=== PATIENT | male | born 1980 | race Caucasian/White ===

== ENCOUNTER → 2016-07-01 | Outpatient (CLI) | payer BC ==
[2016-07-01 12:48] LABS: Follicle Stimulating Hormone 8.3 mIU/mL (1.6-9.7); Prolactin 19.4 ng/mL (3.7-17.9)
[2016-07-01 12:56] LABS: ALT 49 U/L (21-72); AST 33 U/L (17-59); Alkaline Phosphatase 68 U/L (38-126); Anion Gap 14 mmol/L; Blood Urea Nitrogen 17 mg/dL (9-20); Calcium 9.5 mg/dL (8.4-10.2); Carbon Dioxide 24 mmol/L (22-30); Chloride 104 mmol/L (98-107); Glucose 96 mg/dL (74-99); Non-African American GFR(MDRD) >60 (>60 ml/min/1.73 sqM); Potassium 4.2 mmol/L (3.5-5.1); Sodium 142 mmol/L (137-145); Total Bilirubin 0.6 mg/dL (0.2-1.3); Total Protein 7.7 g/dL (6.3-8.2)
[2016-07-01 13:19] LABS: Vitamin B12 849 pg/mL (239-931)
== END | disposition home or self-care (01) ==
LOC: LABWHC1 09:27
PROVIDERS: ATTEND Internal Medicine Endocrinology, Diabetes & Metabolism
DX: E29.1 Testicular hypofunction (principal); E89.0 Postprocedural hypothyroidism; R53.83 Other fatigue
CPT/HCPCS: 36415; 80053; 82533; 82607; 83001; 83002; 84146; 84403; 84443

== ENCOUNTER → 2016-07-08 | Outpatient (CLI) | payer BC ==
[2016-07-08 11:07] LABS: Follicle Stimulating Hormone 9.2 mIU/mL (1.6-9.7)
== END | disposition home or self-care (01) ==
LOC: LABWHC1 08:42
PROVIDERS: ATTEND Internal Medicine Endocrinology, Diabetes & Metabolism
DX: E89.0 Postprocedural hypothyroidism (principal); E29.1 Testicular hypofunction; R53.83 Other fatigue
CPT/HCPCS: 36415; 82024; 82533; 83001; 83002; 84403; 84439; 84443

== ENCOUNTER → 2016-07-12 | Outpatient (CLI) | payer BC ==
[~2016-07-12] MED LIST: COSYNTROPIN 0.25 MG VIAL IVP ONE; SODIUM CHLORIDE 0.9% 250 ML in EMPTY BAG 1 BAG IV PRN; SODIUM CHLORIDE 0.9% 500 ML in EMPTY BAG 1 BAG IV PRN
[2016-07-12 10:49] VITALS: BP 145/94; PULSE 80; RESP 20; TEMP 97.7
== END | disposition home or self-care (01) ==
LOC: PROCWHC3 10:11
PROVIDERS: ATTEND Internal Medicine Endocrinology, Diabetes & Metabolism
DX: R53.83 Other fatigue (principal)
CPT/HCPCS: 82533; 82024; 96374; J0834

== ENCOUNTER → 2016-07-19 | Outpatient (CLI) | payer BC ==
--- NOTE | 2016-07-20 07:18 | MR ---
EXAMINATION TYPE: MR pituitary wo/w con DATE OF EXAM: 07/20/2016 6:36 AM COMPARISON: NONE HISTORY: Fatigue, postablative hypothyroidism CONTRAST: Standard multiplanar, multisequence MRI of the pituitary gland with and without the intravenous admin istration of 20 mL intravenous MultiHance gadolinium contrast was obtained on a 3 Sabrina magnet.. FINDINGS: There is a focal 1.5 mm area of decreased enhancement in the right side of the pituitary gl and pituitary morphology is otherwise unremarkable. The remainder of the gland enhances homogeneously IMPRESSION: 1.5 mm microadenoma involving the right side of the pituitary gland.
== END | disposition home or self-care (01) ==
LOC: RADMRIMAIN 21:07
PROVIDERS: ATTEND Internal Medicine Endocrinology, Diabetes & Metabolism
DX: D35.2 Benign neoplasm of pituitary gland (principal)
CPT/HCPCS: 70553; A9577

== ENCOUNTER → 2016-10-26 | Outpatient (CLI) | payer BC ==
[2016-10-26 09:26] LABS: CH 31.7; CHCM 34.2; HCT 45.6 % (39.0-53.0); HDW 2.52; HGB 15.4 gm/dL (13.0-17.5); MCH 31.5 pg (25.0-35.0); MCHC 33.8 g/dL (31.0-37.0); MCV 93.2 fL (80.0-100.0); Mean Platelet Volume 6.9; RBC 4.89 m/uL (4.30-5.90); WBC 5.5 k/uL (3.8-10.6)
[2016-10-26 10:59] LABS: ALT 52 U/L (21-72); AST 30 U/L (17-59); Alkaline Phosphatase 66 U/L (38-126); Anion Gap 10 mmol/L; Blood Urea Nitrogen 16 mg/dL (9-20); Calcium 9.8 mg/dL (8.4-10.2); Carbon Dioxide 29 mmol/L (22-30); Chloride 106 mmol/L (98-107); Glucose 121 mg/dL (74-99); Non-African American GFR(MDRD) >60 (>60 ml/min/1.73 sqM); Potassium 4.3 mmol/L (3.5-5.1); Sodium 145 mmol/L (137-145); Total Bilirubin 0.4 mg/dL (0.2-1.3); Total Protein 7.2 g/dL (6.3-8.2)
== END | disposition home or self-care (01) ==
LOC: LABWHC1 08:30
PROVIDERS: ATTEND Internal Medicine Endocrinology, Diabetes & Metabolism
DX: E23.0 Hypopituitarism (principal); E27.49 Other adrenocortical insufficiency; E89.0 Postprocedural hypothyroidism
CPT/HCPCS: 36415; 80053; 84153; 84403; 84439; 84443; 85027

== ENCOUNTER → 2017-01-28 | Outpatient (CLI) | payer BC ==
[2017-01-28 08:53] LABS: CH 32.6; CHCM 35.3; HCT 49.1 % (39.0-53.0); HDW 2.56; HGB 16.8 gm/dL (13.0-17.5); MCH 31.7 pg (25.0-35.0); MCHC 34.1 g/dL (31.0-37.0); MCV 92.8 fL (80.0-100.0); Mean Platelet Volume 7.3; RBC 5.29 m/uL (4.30-5.90)
[2017-01-28 10:08] LABS: ALT 48 U/L (21-72); AST 25 U/L (17-59); Alkaline Phosphatase 61 U/L (38-126); Anion Gap 8 mmol/L; Blood Urea Nitrogen 17 mg/dL (9-20); Calcium 9.3 mg/dL (8.4-10.2); Carbon Dioxide 26 mmol/L (22-30); Chloride 105 mmol/L (98-107); Glucose 104 mg/dL (74-99); Non-African American GFR(MDRD) >60 (>60 ml/min/1.73 sqM); Potassium 4.4 mmol/L (3.5-5.1); Sodium 139 mmol/L (137-145); Total Bilirubin 0.7 mg/dL (0.2-1.3); Total Protein 7.4 g/dL (6.3-8.2)
== END | disposition home or self-care (01) ==
LOC: LABWHC1 08:14
PROVIDERS: ATTEND Internal Medicine Endocrinology, Diabetes & Metabolism
DX: E23.0 Hypopituitarism (principal); E27.49 Other adrenocortical insufficiency; D35.2 Benign neoplasm of pituitary gland; E89.0 Postprocedural hypothyroidism
CPT/HCPCS: 36415; 80053; 84146; 84403; 84439; 84443; 85027

== ENCOUNTER → 2017-02-15 | Outpatient (CLI) | payer BC ==
--- NOTE | 2017-02-15 21:33 | CONS ---
CONSULTATION Consultation done for sleep apnea. 36-year-old male patient advised to come into the sleep center by his as she has noted that the patient is having loud snoring quits breathing multiple occasions throughout the night. The patient's sleep quality has been poor for many years as the patient wakes up frequently during the night. He wakes up to urinate/ At times he wakes up with dry mouth and in the morning he is nonrefreshed. His current [place] score is 19. He has been gradually gaining weight over the years. No alcoholism. No substance abuse. His father apparently has obstructive sleep apnea. He has been diagnosed having hypothyroidism, maintained on thyroid hormone replacement. He is also known to have hypotestosteronism and pituitary adenoma that had resulted into an adrenal insufficiency for which he is on hydrocortisone. PAST MEDICAL HISTORY: 1. Obesity. 2. Hypothyroidism. 3. Graves disease status post radioactive iodine treatment. 4. Pituitary adenoma with secondary adrenal insufficiency. PAST SURGICAL HISTORY: Includes removal of a cyst from the right wrist and left knee arthroscopy with subsequent revision. DRUG ALLERGIES: OUTPATIENT MEDICATION LIST: Testosterone shots, hydrocortisone 10 mg, 1 tab in the morning and 1 tab in the evening and levothyroxine 150 mcg p.o. daily. SOCIAL HISTORY: Patient is nonsmoker. He quit smoking few years back. He drinks 1-2 beers on a weekly basis. No history of substance abuse. He works for company. FAMILY HISTORY: Positive for GHASSAN in his father. REVIEW OF SYSTEMS: 12-point review of system was done and positive findings were mentioned above in the history of present illness. No lower extremities. No headaches. No change in mental status. No heartburn. No palpitations. No grinding of the teeth. BP is 148/84, pulse 92, respirations 16, temp 97.8, saturation 96% on room air. BMI 32.9 and weight is 246, height is 6'0". Neck size is 17.5 inches. GENERAL: Appears calm, comfortable. HEENT: Short neck, crowded posterior pharynx. There is no goiter or neck masses. LUNGS: Diminished breath sounds bilaterally. Otherwise clear. HEART: Sounds regular rate and rhythm. Normal S1, S2. No S3, S4. No murmurs. ABDOMEN: Soft, nontender. No organomegaly. EXTREMITIES: No edema, cyanosis or clubbing. IMPRESSION: 1. Obstructive sleep apnea clinically suspected and the patient will need further investigation. 2. Chronic hypersomnia with an [place] score of 18. 3. Obesity with a BMI of 32.9. 4. Hypothyroidism. 5. History of Graves disease, with previous radioactive iodine treatment. 6. Pituitary adenoma with secondary adrenal insufficiency. PLAN: 1. Encourage weight loss. 2. Avoid driving especially when feeling drowsy or sleepy. 3. Implement good sleep hygiene measures. 4. Proceed with a screening polysomnogram looking for any significant sleep apnea and treat accordingly. MMODL / IJN: [id number] /
== END ==
LOC: SLEEP 14:02
PROVIDERS: ATTEND Internal Medicine Critical Care Medicine
DX: G47.33 Obstructive sleep apnea (adult) (pediatric) (principal); G47.10 Hypersomnia, unspecified; E66.9 Obesity, unspecified; E03.9 Hypothyroidism, unspecified; D35.2 Benign neoplasm of pituitary gland; Z68.32 Body mass index [BMI] 32.0-32.9, adult; Z79.899 Other long term (current) drug therapy
CPT/HCPCS: 99211

== ENCOUNTER 2017-05-03 08:33 | Emergency (ER) | payer BC ==
[2017-05-03 08:38] VITALS: BP 138/80; PULSE 77; RESP 18; TEMP 97.8
--- NOTE | 2017-05-03 08:57 | ED ---
General Adult HPI - General Chief complaint: Back Pain/Injury Stated complaint: Rib Pain Time Seen by Provider: 05/03/17 08:46 Source: patient, RN notes reviewed Mode of arrival: ambulatory Limitations: no limitations - History of Present Illness Initial comments: 36-year-old male presents emergency Department chief complaint left rib pain. Patient states 9-10 days ago he states he went to push off the couch to get up and states that it moved causing to fall and his left ribs on the frame. Patient states that he's been trying to tell felt the pain but states it's been getting worse. He noticed that her 20 takes a deep inspiration. He does not feel short of breath at rest. He states he also uses a CPAP at nighttime which seems to make it more sore. Patient denies palpitations, anterior chest pain, cardiac history, abdominal pain, nausea vomiting diarrhea constipation. - Related Data Home Medications Medication Instructions Recorded Confirmed Hydrocortisone [Cortef] 10 mg PO HS 05/03/17 05/03/17 Hydrocortisone [Cortef] 15 mg PO QAM 05/03/17 05/03/17 L.acidoph,Paracasei, B.lactis 1 cap PO DAILY 05/03/17 05/03/17 [Probiotic] Multivitamin [Men's Multi-Vitamin] 1 tab PO DAILY 05/03/17 05/03/17 [place]-3 Fatty Acids/Fish Oil [Fish 1 cap PO DAILY 05/03/17 05/03/17 Oil 1,000 mg Softgel] Testosterone Injection (Unknown 1 injection SQ Q14D 05/03/17 05/03/17 Dose) Previous Rx's Medication Instructions Recorded Hydrocodone/Acetaminophen [[place] 1 tab PO Q6HR PRN #20 tab 05/03/17 5-325] Allergies Allergy/AdvReac Type Severity Reaction Status Date / Time Tetracyclines Allergy Unknown Verified 05/03/17 09:05 Review of Systems ROS Statement: Those systems with pertinent positive or pertinent negative responses have been documented in the HPI. ROS Other: All systems not noted in ROS Statement are negative. Past Medical History Past Medical History: Thyroid Disorder Additional Past Medical History / Comment(s): graves disease, sleep apnea, History of Any Multi-Drug Resistant Organisms: None Reported Past Surgical History: Orthopedic Surgery Additional Past Surgical History / Comment(s): left knee scope, ganglion cyst removal Past Anesthesia/Blood Transfusion Reactions: No Reported Reaction Past Psychological History: Depression Smoking Status: Former smoker Past Alcohol Use History: None Reported Past Drug Use History: None Reported - Past Family History Father Family Medical History: Coronary Artery Disease (CAD), Hypertension General Exam Limitations: no limitations General appearance: alert, in no apparent distress Head exam: Present: atraumatic, normocephalic, normal inspection Neck exam: Present: normal inspection, full ROM. Absent: tenderness, meningismus, lymphadenopathy Respiratory exam: Present: normal lung sounds bilaterally, chest wall tenderness (Moderate left anterior lateral rib tenderness just inferior to the pec). Absent: respiratory distress, wheezes, rales, rhonchi, stridor Cardiovascular Exam: Present: regular rate, normal rhythm, normal heart sounds. Absent: systolic murmur, diastolic murmur, rubs, gallop, clicks GI/Abdominal exam: Present: soft, normal bowel sounds. Absent: distended, tenderness, guarding, rebound, rigid Neurological exam: Present: alert, oriented X3, CN II-XII intact Skin exam: Present: warm, dry, intact, normal color. Absent: rash Course Vital Signs 05/03/17 08:34 Temperature 97.8 F Pulse Rate 77 Respiratory 18 Rate Blood Pressure 138/80 O2 Sat by Pulse 99 Oximetry Medical Decision Making - Medical Decision Making 36-year-old male present emergency department for left rib injuries. Patient has a fracture of the left anterior sixth rib. Patient has no evidence pneumothorax. Patient be given pain control follow-up with PCP discussed incentive spirometry and return parameters Disposition Clinical Impression: Left rib fracture Disposition: HOME SELF-CARE Condition: Stable Instructions: Rib Fracture (ED) Additional Instructions: Please return to the Emergency Department if symptoms worsen or any other concerns. Prescriptions: Hydrocodone/Acetaminophen [[place] 5-325] 1 tab PO Q6HR PRN #20 tab PRN Reason: Pain Referrals: None,Stated [Primary Care Provider] - 1-2 days Time of Disposition: 09:39
--- NOTE | 2017-05-03 09:18 | XR ---
EXAMINATION TYPE: XR ribs LT w pa chest xray DATE OF EXAM: 05/03/2017 COMPARISON: NONE HISTORY: Pain TECHNIQUE: Single view of the chest left views of the ribs are submitted. FINDINGS: The lungs are clear. No Evidence for pneumothorax. No evidence for focal contusion. Medi astinal structures are midline. Evaluation of the ribs transverse fracture of left ribs 6. No additi onal rib fractures seen. IMPRESSION: 1. Fracture of anterior left rib 6. 2. No evidence of pneumothorax or pulmonary contusion.
== END 2017-05-03 09:55 | disposition home or self-care (01) ==
LOC: EC 08:33
DX: S22.32XA Fracture of one rib, left side, initial encounter for closed fracture (principal); Z87.891 Personal history of nicotine dependence; Z88.1 Allergy status to other antibiotic agents; Z79.899 Other long term (current) drug therapy; W19.XXXA Unspecified fall, initial encounter; Y93.89 Activity, other specified
CPT/HCPCS: 99283

== ENCOUNTER → 2017-05-26 | Outpatient (CLI) | payer BC ==
[2017-05-26 09:06] LABS: CH 31.6; CHCM 34.6; HCT 45.1 % (39.0-53.0); HDW 2.68; HGB 15.1 gm/dL (13.0-17.5); MCH 30.7 pg (25.0-35.0); MCHC 33.5 g/dL (31.0-37.0); MCV 91.7 fL (80.0-100.0); Mean Platelet Volume 6.7; RBC 4.92 m/uL (4.30-5.90); RDW 12.7 % (11.5-15.5); WBC 4.8 k/uL (3.8-10.6)
[2017-05-26 09:18] LABS: ALT 45 U/L (21-72); AST 24 U/L (17-59); Alkaline Phosphatase 60 U/L (38-126); Anion Gap 10 mmol/L; Blood Urea Nitrogen 20 mg/dL (9-20); Calcium 9.5 mg/dL (8.4-10.2); Carbon Dioxide 27 mmol/L (22-30); Chloride 106 mmol/L (98-107); Glucose 101 mg/dL (74-99); Non-African American GFR(MDRD) >60 (>60 ml/min/1.73 sqM); Sodium 143 mmol/L (137-145); Total Bilirubin 0.4 mg/dL (0.2-1.3); Total Protein 7.4 g/dL (6.3-8.2)
== END | disposition home or self-care (01) ==
LOC: LABWHC1 08:38
PROVIDERS: ATTEND Internal Medicine Endocrinology, Diabetes & Metabolism
DX: E23.0 Hypopituitarism (principal); E27.49 Other adrenocortical insufficiency; D35.2 Benign neoplasm of pituitary gland; E89.0 Postprocedural hypothyroidism; R73.09 Other abnormal glucose
CPT/HCPCS: 36415; 80053; 83036; 84146; 84403; 84439; 84443; 85027

== ENCOUNTER 2017-06-05 17:09 | Emergency (ER) | payer BC ==
[2017-06-05 17:22] VITALS: RESP 20
--- NOTE | 2017-06-05 17:29 | ED ---
General Adult HPI - General Chief complaint: Extremity Injury, Upper Stated complaint: Broken toe Time Seen by Provider: 06/05/17 17:25 Source: patient, RN notes reviewed Mode of arrival: ambulatory Limitations: no limitations - History of Present Illness Initial comments: Patient's 36-year-old male who presents emergency room today with a chief complaint of injury to the left pinky toe. Patient states that he was walking and hit the edge of the couch with his foot causing injury to the left foot. He states that the toe seems to be off center. Patient denies any recent fever, chills, shortness of breath, chest pain, back pain, abdominal pain, nausea or vomiting, or any other complaints. - Related Data Home Medications Medication Instructions Recorded Confirmed Hydrocortisone [Cortef] 10 mg PO HS 05/03/17 05/03/17 Hydrocortisone [Cortef] 15 mg PO QAM 05/03/17 05/03/17 L.acidoph,Paracasei, B.lactis 1 cap PO DAILY 05/03/17 05/03/17 [Probiotic] Multivitamin [Men's Multi-Vitamin] 1 tab PO DAILY 05/03/17 05/03/17 [place]-3 Fatty Acids/Fish Oil [Fish 1 cap PO DAILY 05/03/17 05/03/17 Oil 1,000 mg Softgel] Testosterone Injection (Unknown 1 injection SQ Q14D 05/03/17 05/03/17 Dose) Previous Rx's Medication Instructions Recorded Hydrocodone/Acetaminophen [[place] 1 tab PO Q6HR PRN #20 tab 05/03/17 5-325] Ibuprofen [Motrin] 600 mg PO Q6HR PRN #40 day 06/05/17 Allergies Allergy/AdvReac Type Severity Reaction Status Date / Time Tetracyclines Allergy Unknown Verified 06/05/17 17:21 Review of Systems ROS Statement: Those systems with pertinent positive or pertinent negative responses have been documented in the HPI. ROS Other: All systems not noted in ROS Statement are negative. Past Medical History Past Medical History: Thyroid Disorder Additional Past Medical History / Comment(s): graves disease, sleep apnea, History of Any Multi-Drug Resistant Organisms: None Reported Past Surgical History: Orthopedic Surgery Additional Past Surgical History / Comment(s): left knee scope, ganglion cyst removal Past Anesthesia/Blood Transfusion Reactions: No Reported Reaction Past Psychological History: Depression Smoking Status: Former smoker Past Alcohol Use History: None Reported Past Drug Use History: None Reported - Past Family History Father Family Medical History: Coronary Artery Disease (CAD), Hypertension General Exam - General Exam Comments Initial Comments: General: The patient is awake and alert, in no distress, and does not appear acutely ill. Neck: The neck is supple, there is no tenderness or JVD. Cardiovascular: There is a regular rate and rhythm. No murmur, rub or gallop is appreciated. Respiratory: Lungs are clear to auscultation, respirations are non-labored, breath sounds are equal. No wheezes, stridor, rales, or rhonchi. Musculoskeletal: Patient does have lateral deviation of the fifth digit of the left foot. Shows good range of motion all other areas. No other bony tenderness. Sensation intact. Pulses equal bilateral 2+. Neurological: A&O x 3. CN II-XII intact, There are no obvious motor or sensory deficits. Coordination appears grossly intact. Speech is normal. Skin: Skin is warm and dry and no rashes or lesions are noted. Psychiatric: Normal mood and affect. Limitations: no limitations Course Vital Signs 06/05/17 17:18 Temperature 100.1 F H Pulse Rate 85 Respiratory 20 Rate Blood Pressure 132/81 O2 Sat by Pulse 98 Oximetry Procedures - Procedures Initial comment: ChloraPrep used to clean the area. 1% lidocaine was injected with a 30-gauge needle at the head of the metatarsal. Patient's left toe was then reduced and daniel taped to the fourth digit. Patient tolerated procedure well. Medical Decision Making - Medical Decision Making X-ray reviewed does show fracture of the proximal left fifth digit. Patient's left toe was anesthetized with 1% lidocaine locally and reduced and daniel taped to the fourth digit. Patient tolerated the procedure well will be discharged home advised follow-up with orthopedics over the next 2 days. Disposition Clinical Impression: Toe fracture, left Disposition: HOME SELF-CARE Condition: Good Instructions: Toe Fracture (ED) Additional Instructions: Please continue to use daniel tape the fourth and fifth digits placing gauze in between toes so the skin does not breakdown. Please follow-up with the orthopedic doctor over the next 2 days. Please return to emergency room if any symptoms increase worsen or for any other concerns. Prescriptions: Ibuprofen [Motrin] 600 mg PO Q6HR PRN #40 day PRN Reason: Pain Referrals: None,Stated [Primary Care Provider] - 1-2 days Beto Zapata MD [STAFF PHYSICIAN] - 1-2 days Time of Disposition: 18:03
[2017-06-05 18:22] VITALS: BP 136/87; PULSE 96; TEMP 98.7
--- NOTE | 2017-06-05 18:23 | XR ---
EXAMINATION TYPE: XR foot complete LT DATE OF EXAM: 06/05/2017 COMPARISON: NONE HISTORY: Pain TECHNIQUE: 4 views FINDINGS: There is nondisplaced transverse fracture of the midshaft proximal phalanx little toe left foot. There is no dislocation. Joint spaces are normal. IMPRESSION: Acute fracture of the little toe.
== END 2017-06-05 18:21 | disposition home or self-care (01) ==
LOC: EC 17:09
DX: S92.512A Displaced fracture of proximal phalanx of left lesser toe(s), initial encounter for closed fracture (principal); Z87.891 Personal history of nicotine dependence; Z79.52 Long term (current) use of systemic steroids; Z79.899 Other long term (current) drug therapy; W22.03XA Walked into furniture, initial encounter; Y93.01 Activity, walking, marching and hiking; Y92.009 Unspecified place in unspecified non-institutional (private) residence as the place of occurrence of the external cause
CPT/HCPCS: 28515; 99283

== ENCOUNTER → 2017-06-21 | Outpatient (CLI) | payer BC ==
--- NOTE | 2017-06-21 13:54 | PN ---
PROGRESS NOTE This patient has severe obstructive sleep apnea. The patient was found to have an AHI of 71.7. Currently he is on a CPAP pressure of 5 cm of water. The patient is coming in for a compliancy check. The patient is doing extremely well. He is wearing his CPAP every night. His compliancy for more than 4 hours is 100%, average CPAP use around 7.2 hours per night. Leak factor 16 L and the AHI is down to 1.9. His sleep quality is improved. He is waking up much more alert and awake during the day. He has no side effects or complaints of his CPAP treatment. He is using a N10 nose mask. No hypersomnia or sleepiness during the day and his [place] score is currently down to 4. PHYSICAL EXAMINATION: BP is 154/91, pulse 80, respirations 16, temperature 97.9 weight is 262. GENERAL APPEARANCE: Calm, comfortable. Head is atraumatic, normocephalic. Neck is short and supple. There is no JVD, no goiter or neck mass. LUNGS: Clear to auscultation. HEART: Sounds are regular rate and rhythm. Normal S1, S2. No murmurs. ABDOMEN: Soft, nontender. No organomegaly. EXTREMITIES: No edema. No cyanosis or clubbing. NEUROLOGIC: Alert and oriented x3. There is no focal neurological deficits. PSYCHIATRICALLY: Appropriate mood and affect. IMPRESSION: 1. Severe obstructive sleep apnea with an apnea-hypopnea index of 71. The patient demonstrated adequate clinical response and compliance. 2. Chronic hypersomnia, improved. [place] score is down to 4. 3. Obesity with a body mass index of 33. 4. Hypothyroidism. 5. Pituitary adenoma. 6. Secondary adrenal insufficiency. PLAN: 1. Continue CPAP at same level of pressure. 2. The patient has demonstrated adequate clinical response and compliance. I will see him back in a year's time in followup. Treatment has been successful for the time being. MMODL / IJN: [id number] /
== END | disposition home or self-care (01) ==
LOC: SLEEP 13:16
PROVIDERS: ATTEND Internal Medicine Critical Care Medicine
DX: G47.33 Obstructive sleep apnea (adult) (pediatric) (principal); G47.10 Hypersomnia, unspecified; E66.9 Obesity, unspecified; Z68.33 Body mass index [BMI] 33.0-33.9, adult; E03.9 Hypothyroidism, unspecified; D35.2 Benign neoplasm of pituitary gland

== ENCOUNTER → 2017-10-24 | Outpatient (CLI) | payer BC ==
[2017-10-24 08:58] LABS: HCT 45.4 % (39.0-53.0); HGB 15.8 gm/dL (13.0-17.5); MCH 32.1 pg (25.0-35.0); MCHC 34.7 g/dL (31.0-37.0); MCV 92.4 fL (80.0-100.0); Platelet Count 248 k/uL (150-450); RBC 4.91 m/uL (4.30-5.90); RDW 12.7 % (11.5-15.5); WBC 3.3 k/uL (3.8-10.6)
[2017-10-24 09:33] LABS: ALT 43 U/L (21-72); AST 26 U/L (17-59); Albumin 4.4 g/dL (3.5-5.0); Alkaline Phosphatase 57 U/L (38-126); Anion Gap 11 mmol/L; Blood Urea Nitrogen 12 mg/dL (9-20); Calcium 9.4 mg/dL (8.4-10.2); Carbon Dioxide 28 mmol/L (22-30); Chloride 103 mmol/L (98-107); Glucose 111 mg/dL (74-99); Potassium 4.7 mmol/L (3.5-5.1); Sodium 142 mmol/L (137-145); Total Bilirubin 0.6 mg/dL (0.2-1.3); Total Protein 7.1 g/dL (6.3-8.2)
[2017-10-24 17:46] LABS: ACTH 13.9 pg/mL (0.00-45.99)
[2017-10-24 18:25] LABS: Hemoglobin A1C 5.2 % (4.0-6.0)
== END ==
LOC: LABWHC1 08:31
PROVIDERS: ATTEND Internal Medicine Endocrinology, Diabetes & Metabolism
DX: E23.0 Hypopituitarism (principal); E27.49 Other adrenocortical insufficiency; D35.2 Benign neoplasm of pituitary gland; R73.03 Prediabetes
CPT/HCPCS: 36415; 80053; 82024; 82533; 83036; 84146; 84403; 85027

== ENCOUNTER → 2018-04-18 | Outpatient (CLI) | payer BC ==
[2018-04-18 09:56] LABS: HCT 50.5 % (39.0-53.0); HGB 16.5 gm/dL (13.0-17.5); MCH 31.1 pg (25.0-35.0); MCHC 32.6 g/dL (31.0-37.0); MCV 95.4 fL (80.0-100.0); Mean Platelet Volume 6.7; Platelet Count 227 k/uL (150-450); RDW 12.5 % (11.5-15.5)
[2018-04-18 16:46] LABS: Albumin 4.6 g/dL (3.80-4.90); Albumin/Globulin Ratio 2.09 (1.20-2.10); Anion Gap 4.9 mmol/L (4.00-12.00); Calcium 9.2 mg/dL (8.7-10.3); Carbon Dioxide 30.1 mmol/L (21.6-31.8); Globulin 2.2 g/dL (2.1-3.7); Potassium 4.7 mmol/L (3.5-5.5); Total Bilirubin 0.8 mg/dL (0.3-1.2); Total Protein 6.8 g/dL (6.2-8.2)
[2018-04-18 20:09] LABS: Hemoglobin A1C 5.3 % (4.0-6.0)
== END | disposition home or self-care (01) ==
LOC: LABWHC1 09:08
PROVIDERS: ATTEND Internal Medicine Endocrinology, Diabetes & Metabolism
DX: E23.0 Hypopituitarism (principal); D35.2 Benign neoplasm of pituitary gland; R73.03 Prediabetes; E27.49 Other adrenocortical insufficiency; Z12.5 Encounter for screening for malignant neoplasm of prostate
CPT/HCPCS: 80053; 82533; 85027; 84146; 84403; 83036; 36415; G0103

== ENCOUNTER → 2018-06-13 | Outpatient (CLI) | payer BC ==
--- NOTE | 2018-06-13 15:48 | PN ---
PROGRESS NOTE Storm is a 37-year-old male patient coming in for an annual check regarding obstructive sleep apnea treatment. Diagnosed this patient with severe GHASSAN approximately a year ago and the patient was found to have a baseline AHI of 71.7. He was treated with a CPAP pressure of 15 cm of water. Since his last evaluation, the patient has lost around 30 pounds. He used to weigh 262. He is currently is down to 233 pounds. He is very compliant with CPAP. He is wearing it every night. He is looking for an alternative mask. He is currently using a nose mask AirFit N10. He is having some difficulties in having good seal with the mask. I checked compliance data. The patient has been using his CPAP every night. He is averaging around 5.9 hours of CPAP use per night. Leak factor is 25 L/minutes. AHI is down to 1.8. No hypersomnia or sleepiness during the day. He is very much refreshed and alert, active. He is willing to lose more weight. His current [place] Score is at 7. REVIEW OF SYSTEMS: No altered mentation. No headaches. No chest pain. Shortness of breath. Heartburn. Nausea, vomiting. Discomfort. Musculoskeletal discomfort throughout the night and the patient's treatment has been essentially successful. No history of falls. No history of any sinus infections or aerophagia. PHYSICAL EXAMINATION: His current vitals: His blood pressure is 139/70, pulse 99, respirations 16, temperature 98.1 saturation 98% on room air. Height is 6 feet 1 inch. Weight 233, [place] Score is at 7. BMI 30.6. GENERAL APPEARANCE: Calm and comfortable. HEENT: Head is atraumatic, normocephalic. NECK: Supple. No JVD. No goiter or neck masses. LUNGS: Clear to auscultation. HEART: Sounds regular rate and rhythm. Normal S1, S2. No S3. No murmurs. ABDOMEN: Soft, nontender. No organomegaly. EXTREMITIES: No edema. No cyanosis or clubbing. NEUROLOGIC: Alert and oriented x3. No focal neurological deficits. PSYCHIATRIC: Negative for anxiety or depression or any symptoms of psychosis. IMPRESSION: 1. Severe obstructive sleep apnea with an AHI of 71.7. Still undergoing successful CPAP therapy. 2. Obesity with interval weight loss. In the order of 30 pounds and current body weight is down to 230 and BMI of 30.6. 3. Hypersomnia, recovered. 4. Hypothyroidism. 5. History of pituitary adenoma. 6. History of secondary adrenal insufficiency. PLAN: 1. Dropped down CPAP pressure to 13 cm of water. 2. Offer this patient an AirFit N20 medium-sized nose mask. 3. Encourage further weight loss. 4. Treatment is successful and the patient will be kept on the CPAP therapy for now and see him back in a year's time in follow up or earlier if needed. MMODL / IJN: [id number] /
== END ==
LOC: SLEEP 13:47
PROVIDERS: ATTEND Internal Medicine Critical Care Medicine
DX: G47.33 Obstructive sleep apnea (adult) (pediatric) (principal); E66.9 Obesity, unspecified; E03.9 Hypothyroidism, unspecified; E27.40 Unspecified adrenocortical insufficiency; Z68.30 Body mass index [BMI] 30.0-30.9, adult; Z99.89 Dependence on other enabling machines and devices; Z86.018 Personal history of other benign neoplasm; Z86.39 Personal history of other endocrine, nutritional and metabolic disease

== ENCOUNTER → 2018-11-06 | Outpatient (CLI) | payer BC ==
[2018-11-06 09:16] LABS: HGB 15.5 gm/dL (13.0-17.5); MCH 30.5 pg (25.0-35.0); MCHC 32.3 g/dL (31.0-37.0); MCV 94.7 fL (80.0-100.0); Mean Platelet Volume 6.4; Platelet Count 248 k/uL (150-450); RBC 5.07 m/uL (4.30-5.90); RDW 13.2 % (11.5-15.5)
[2018-11-06 16:09] LABS: Albumin 4.8 g/dL (3.80-4.90); Albumin/Globulin Ratio 2.29 (1.60-3.17); Anion Gap 7.7 mmol/L (4.00-12.00); Calcium 9.3 mg/dL (8.7-10.3); Carbon Dioxide 28.3 mmol/L (21.6-31.8); Globulin 2.1 g/dL (1.6-3.3); Potassium 4.2 mmol/L (3.5-5.5); Total Bilirubin 0.7 mg/dL (0.2-1.2); Total Protein 6.9 g/dL (6.2-8.2)
[2018-11-06 17:30] LABS: Hemoglobin A1C 5.6 % (4.0-6.0)
[2018-11-06 19:57] LABS: ACTH <5.00 pg/mL (0.00-45.99)
== END | disposition home or self-care (01) ==
LOC: LABWHC1 08:55
PROVIDERS: ATTEND Internal Medicine Endocrinology, Diabetes & Metabolism
DX: D35.2 Benign neoplasm of pituitary gland (principal); E89.0 Postprocedural hypothyroidism; R73.03 Prediabetes; E23.0 Hypopituitarism; E27.49 Other adrenocortical insufficiency
CPT/HCPCS: 36415; 80053; 82024; 82533; 83036; 84146; 84153; 84403; 84439; 84443; 85027

== ENCOUNTER → 2019-05-09 | Outpatient (CLI) | payer BC ==
[2019-05-09 09:14] LABS: HCT 42.9 % (39.0-53.0); HGB 15.1 gm/dL (13.0-17.5); MCH 33.4 pg (25.0-35.0); MCHC 35.1 g/dL (31.0-37.0); MCV 95.2 fL (80.0-100.0); Mean Platelet Volume 5.9; Platelet Count 258 k/uL (150-450); RBC 4.51 m/uL (4.30-5.90); WBC 3.6 k/uL (3.8-10.6)
[2019-05-09 17:54] LABS: Prolactin 11.1 ng/mL (2.1-17.7)
[2019-05-09 17:55] LABS: T4, Free (Free Thyroxine) 1.2 ng/dL (0.80-1.80)
== END | disposition home or self-care (01) ==
LOC: LABWHC1 08:35
PROVIDERS: ATTEND Internal Medicine Endocrinology, Diabetes & Metabolism
DX: E23.0 Hypopituitarism (principal); E89.0 Postprocedural hypothyroidism; D35.2 Benign neoplasm of pituitary gland
CPT/HCPCS: 36415; 82024; 82533; 84146; 84153; 84403; 84439; 84443; 85027

== ENCOUNTER → 2019-07-10 | Outpatient (CLI) | payer BC ==
--- NOTE | 2019-07-10 16:30 | PN ---
PROGRESS NOTE This is a 38-year-old male patient with severe obstructive sleep apnea with an AHI of 71 coming in for an annual check regarding his obstructive sleep apnea. During his last evaluation, the patient was having some difficulties tolerating his CPAP at a pressure of 15 cm of water, and I lowered the pressure down to 13. The treatment has become very successful since. Based on the compliance data, the patient has been averaging around 6.9 hours of CPAP use per night with a leak of 14 L/minute, and his AHI is down to 2. His current [place] is 14. Note that he is using his CPAP every night. Even when he takes naps he uses his CPAP. He is very comfortable. He states that the treatment has become very successful. No aerophagia. No gas. No flatulence. No abdominal distention. Nevertheless, he has had some issues with neck pain and he required rhizotomy by Dr. Martínez. He has not been able to do a whole lot of activity, and the patient's body weight is up by around 20 pounds since his last evaluation. He is currently using an AirFit N20 medium-sized nose mask and he is also looking for an alternative. He uses a chin strap. REVIEW OF SYSTEMS: Fourteen-point review of systems was done. No major hypersomnia or sleepiness. The patient has gained around 20 pounds. He is a mouth breather and he uses a nose mask with a chin strap. No chest pain. No heartburn. No shortness of breath. No angina. No palpitations. PHYSICAL EXAMINATION: BP is 143/87, pulse 100, respirations 16, temperature 98.6, saturation 96% on room air. Height is 6 feet 1 inch. Weight is 255, BMI 33.8. GENERAL APPEARANCE: Calm, comfortable. HEAD: Atraumatic, normocephalic. NECK: Supple. No JVD. No goiter or neck masses. Mallampati class IV. LUNGS: Clear to auscultation. HEART: Heart sounds are regular rate and rhythm. Normal S1, S2. No S3, S4. No murmurs. ABDOMEN: Soft, nontender. No organomegaly. EXTREMITIES: No edema. No cyanosis or clubbing. NEUROLOGIC: Awake and alert. There is no focal neurological deficit. PSYCHIATRIC: Negative for anxiety or depression. SKIN: Negative for any wounds or ulceration. IMPRESSION: 1. Severe symptomatic obstructive sleep apnea with an apnea/hypopnea index of 71, currently on CPAP pressure of 13. 2. Obesity with interval 20-pound weight gain. Current weight is up to 255. 3. Neck pain, post rhizotomy. 4. Hypothyroidism. 5. History of pituitary adenoma. 6. History of secondary adrenal insufficiency. 7. Hypothyroidism. PLAN: 1. Continue CPAP at the pressure of 13. 2. I offered the AirFit N30i medium-sized nose mask. 3. Encourage weight loss. 4. Implement good sleep hygiene measures. 5. See me back in a year's time. Treatment is successful for now. MMODL / IJN: [id number] /
== END | disposition home or self-care (01) ==
LOC: SLEEP 14:08
PROVIDERS: ATTEND Internal Medicine Critical Care Medicine
DX: G47.33 Obstructive sleep apnea (adult) (pediatric) (principal); M54.2 Cervicalgia; E03.9 Hypothyroidism, unspecified; Z86.011 Personal history of benign neoplasm of the brain; Z86.39 Personal history of other endocrine, nutritional and metabolic disease; Z98.1 Arthrodesis status; E66.9 Obesity, unspecified; Z68.33 Body mass index [BMI] 33.0-33.9, adult; Z99.89 Dependence on other enabling machines and devices

== ENCOUNTER → 2019-11-01 | Outpatient (CLI) | payer BC ==
[2019-11-01 13:36] LABS: HCT 48.2 % (39.0-53.0); HGB 16.2 gm/dL (13.0-17.5); MCH 30.9 pg (25.0-35.0); MCHC 33.6 g/dL (31.0-37.0); MCV 91.8 fL (80.0-100.0); Mean Platelet Volume 7.2; Platelet Count 240 k/uL (150-450); RBC 5.25 m/uL (4.30-5.90); RDW 12.2 % (11.5-15.5); WBC 3.4 k/uL (3.8-10.6)
[2019-11-01 20:08] LABS: Prolactin 6.7 ng/mL (2.1-17.7)
[2019-11-01 22:25] LABS: Hemoglobin A1C 5.6 % (4.0-6.0)
== END | disposition home or self-care (01) ==
LOC: LABWHC1 12:13
PROVIDERS: ATTEND Internal Medicine
DX: E29.1 Testicular hypofunction (principal); E03.8 Other specified hypothyroidism; D35.2 Benign neoplasm of pituitary gland; R73.03 Prediabetes
CPT/HCPCS: 36415; 82024; 82533; 83036; 84146; 84403; 84443; 85027

== ENCOUNTER → 2020-05-07 | Outpatient (CLI) | payer BC ==
[2020-05-07 14:57] LABS: HCT 42.8 % (39.0-53.0); HGB 14.4 gm/dL (13.0-17.5); MCH 30.8 pg (25.0-35.0); MCHC 33.7 g/dL (31.0-37.0); MCV 91.6 fL (80.0-100.0); Mean Platelet Volume 6.9; Platelet Count 257 k/uL (150-450); RBC 4.67 m/uL (4.30-5.90); RDW 13.1 % (11.5-15.5); WBC 3.6 k/uL (3.8-10.6)
[2020-05-08 01:26] LABS: Prolactin 6.6 ng/mL (2.1-17.7); T4, Free (Free Thyroxine) 1.3 ng/dL (0.80-1.80)
[2020-05-08 01:31] LABS: Prostate Specific Antigen 0.8 ng/mL (0.0-2.5)
[2020-05-08 04:24] LABS: Hemoglobin A1C 5.4 % (4.0-6.0)
== END | disposition home or self-care (01) ==
LOC: LABWHC1 14:08
PROVIDERS: ATTEND Internal Medicine Endocrinology, Diabetes & Metabolism
DX: E29.1 Testicular hypofunction (principal); E89.0 Postprocedural hypothyroidism; D35.2 Benign neoplasm of pituitary gland; R73.03 Prediabetes; E27.49 Other adrenocortical insufficiency
CPT/HCPCS: 36415; 82024; 82533; 83036; 84146; 84153; 84403; 84439; 84443; 85027

== ENCOUNTER → 2020-08-19 | Outpatient (CLI) | payer BC ==
--- NOTE | 2020-08-19 16:52 | PN ---
PROGRESS NOTE SLEEP CENTER PROGRESS NOTE: This is a 40-year-old male patient coming in for an annual check regarding obstructive sleep apnea. The patient has a case of severe GHASSAN with an AHI of 71 and the patient is currently utilizing CPAP at a pressure of 13 cm of water. During his last visit I lowered the pressure by 2, knowing that the patient's initial pressure was at 15 cm of water. Since last year, the patient has lost approximately 30 pounds and currently is down to 222. He is still working at the [employer]. He is very much refreshed during the day. He is utilizing his CPAP every night. Based on the compliance data that was collected over the past 30 days, the patient utilized his machine every night, and his CPAP use for more than 4 hours is above 90%, averaging around 6.2 hours of CPAP use per night, with a leak of 29 L/minute. His AHI while on treatment is down to 3.2. His current [place] score is 11. No alcoholism. No substance abuse. No head trauma. He is following up with Endocrinology regarding his hypothyroidism and hypotestosteronism, and he is receiving replacement. He is taking also Klonopin at nighttime for anxiety and sleep in addition to medical marijuana. He is currently utilizing an AirFit N20 medium-sized nose mask. REVIEW OF SYSTEMS: Fourteen-point review of systems was done. Positive for 30-pound weight loss, mainly due to his diet. PHYSICAL EXAMINATION: VITAL SIGNS: BP is 140/78, pulse 101, respirations 20, temperature 97.8, saturation 95% on room air. Height is 6 feet 1 inch, weight 222 pounds. GENERAL APPEARANCE: Calm, comfortable. HEAD: Atraumatic, normocephalic. NECK: Supple. No JVD. No goiter or neck masses. Mallampati class IV. LUNGS: Clear to auscultation. HEART: Heart sounds are regular rate and rhythm. Normal S1, S2. No S3, S4. No murmurs. ABDOMEN: Soft, nontender. No organomegaly. EXTREMITIES: No edema. No cyanosis or clubbing. IMPRESSION: 1. Severe symptomatic obstructive sleep apnea. AHI of 71. The patient continues to be successfully treated with a CPAP pressure of 13 cm of water and he is compliant. The treatment continues to be effective. 2. Hypersomnia, improved. 3. Obesity with interval 30-pound weight loss. Current weight is 222 and BMI 28.8. 4. Hypothyroidism. 5. Chronic anxiety/depression, on Lexapro. 6. Hypotestosteronism. PLAN: 1. Keep the same pressure setting at 13. 2. Encourage further weight loss. 3. Refill the AirFit N20 medium-sized nose piece. 4. See me back in the office in a year's time in followup, earlier if needed. His condition is stable. Treatment is successful. Follow up with Endocrinology. MMODL / IJN: [id number] /
== END | disposition home or self-care (01) ==
LOC: SLEEP 15:45
PROVIDERS: ATTEND Internal Medicine Critical Care Medicine
DX: G47.33 Obstructive sleep apnea (adult) (pediatric) (principal); E66.9 Obesity, unspecified; E29.1 Testicular hypofunction; E03.9 Hypothyroidism, unspecified; F41.9 Anxiety disorder, unspecified; F32.9 Major depressive disorder, single episode, unspecified; Z99.89 Dependence on other enabling machines and devices; Z79.899 Other long term (current) drug therapy

== ENCOUNTER → 2020-11-19 | Outpatient (CLI) | payer BC ==
[2020-11-19 23:51] LABS: Prolactin 6.7 ng/mL (2.1-17.7); T4, Free (Free Thyroxine) 1.4 ng/dL (0.80-1.80)
== END | disposition home or self-care (01) ==
LOC: LABWHC1 14:03
PROVIDERS: ATTEND Internal Medicine Endocrinology, Diabetes & Metabolism
DX: D35.2 Benign neoplasm of pituitary gland (principal)
CPT/HCPCS: 36415; 82024; 82533; 84146; 84439; 84443

== ENCOUNTER 2020-11-20 19:56 | Emergency (ER) | payer BC ==
[2020-11-20 20:21] VITALS: RESP 18; TEMP 98.8
[2020-11-20] MEDS ORDERED: MORPHINE SULFATE 4 MG/ML SYRINGE IV STA (20:59)
[2020-11-20 21:35] LABS: Basophils % (A) 0 %; Eosinophils # (A) 0.3 k/uL (0-0.7); Eosinophils % (A) 4 %; HCT 38.3 % (39.0-53.0); HGB 13.8 gm/dL (13.0-17.5); Lymphocytes # (A) 1.4 k/uL (1.0-4.8); Lymphocytes % (A) 19 %; MCH 32.9 pg (25.0-35.0); MCV 91.3 fL (80.0-100.0); Mean Platelet Volume 7.5; Monocytes # (A) 0.5 k/uL (0-1.0); Monocytes % (A) 7 %; Neutrophils # (A) 4.8 k/uL (1.3-7.7); Neutrophils % (A) 68 %; Platelet Count 181 k/uL (150-450); RBC 4.19 m/uL (4.30-5.90); RDW 11.7 % (11.5-15.5); WBC 7.1 k/uL (3.8-10.6)
--- NOTE | 2020-11-20 21:46 | XR ---
EXAMINATION TYPE: XR knee complete RT DATE OF EXAM: 11/20/2020 COMPARISON: NONE HISTORY: Pain TECHNIQUE: 3 views FINDINGS: I see no fracture nor dislocation. Joint spaces are fairly normal. There is no sign of join t effusion. There is spurring on the anterior patella. IMPRESSION: There is mild soft tissue swelling anterior to the patella. Otherwise negative exam.. No fracture.
--- NOTE | 2020-11-20 21:51 | ED ---
Skin/Abscess/FB HPI - General Chief complaint: Skin/Abscess/Foreign Body Stated complaint: Knee pain Time Seen by Provider: 11/20/20 20:42 Source: patient, RN notes reviewed Mode of arrival: wheelchair Limitations: no limitations - History of Present Illness Initial comments: Patient is a 40-year-old male that presents to the emergency department compla ining of right knee pain with some pus drainage of a pinhole site on the lateral aspect inferior knee. He notes that he had tendon repair in his right ankle and has been using a wheeled scooter to get around. He notes that he was unscrew for approximately 3 weeks and thinks that he might had abscess form from the scooter. He notes that the pain while just sitting is tolerable when he is walking it shoots up to an 8-9 out of 10. He notes that nothing is helped alleviate the pain at home. He notes that walking and using his knee make it worse. He notes that today a red area surrounding his knee popped up that was warm to the touch. He denied any other issues or complaints at this time. He denied any chest pain shortness of breath headache nausea vomiting diarrhea constipation fever fatigue chills he denied any decreased range of motion strength sensation in his right lower extremities. - Related Data Home Medications Medication Instructions Recorded Confirmed Hydrocortisone [Cortef] 10 mg PO HS 05/03/17 06/05/17 Hydrocortisone [Cortef] 15 mg PO QAM 05/03/17 06/05/17 L.acidoph,Paracasei, B.lactis 1 cap PO DAILY 05/03/17 06/05/17 [Probiotic] Multivitamin [Men's Multi-Vitamin] 1 tab PO DAILY 05/03/17 06/05/17 Goodman-3 Fatty Acids/Fish Oil [Fish 1 cap PO DAILY 05/03/17 06/05/17 Oil 1,000 mg Softgel] Testosterone Injection (Unknown 1 injection SQ Q14D 05/03/17 06/05/17 Dose) Previous Rx's Medication Instructions Recorded Hydrocodone/Acetaminophen [Lutsen 1 tab PO Q6HR PRN #20 tab 05/03/17 5-325] Ibuprofen [Motrin] 600 mg PO Q6HR PRN #40 day 06/05/17 Sulfamethox-Tmp 800-160Mg [Bactrim 1 each PO Q12HR #20 tab 11/20/20 Ds] Allergies Allergy/AdvReac Type Severity Reaction Status Date / Time Tetracyclines Allergy Unknown Verified 11/20/20 20:17 Review of Systems ROS Statement: Those systems with pertinent positive or pertinent negative responses have been documented in the HPI. ROS Other: All systems not noted in ROS Statement are negative. Past Medical History Past Medical History: Thyroid Disorder Additional Past Medical History / Comment(s): graves disease, sleep apnea, History of Any Multi-Drug Resistant Organisms: None Reported Past Surgical History: Orthopedic Surgery Additional Past Surgical History / Comment(s): left knee scope, ganglion cyst removal Past Anesthesia/Blood Transfusion Reactions: No Reported Reaction Past Psychological History: Anxiety, Bipolar, Depression Smoking Status: Former smoker Past Alcohol Use History: None Reported Past Drug Use History: Marijuana - Past Family History Father Family Medical History: Coronary Artery Disease (CAD), Hypertension General Exam Limitations: no limitations General appearance: alert, in no apparent distress Head exam: Present: atraumatic, normocephalic, normal inspection Eye exam: Present: normal appearance, PERRL, EOMI. Absent: scleral icterus, conjunctival injection, periorbital swelling Neck exam: Present: normal inspection Respiratory exam: Present: normal lung sounds bilaterally. Absent: respiratory distress, wheezes, rales, rhonchi, stridor Cardiovascular Exam: Present: regular rate, normal rhythm, normal heart sounds. Absent: systolic murmur, diastolic murmur, rubs, gallop, clicks Right Hip exam: Present: normal inspection Upper Leg exam: Present: normal inspection Knee exam: Present: full ROM, tenderness (Over the inferior lateral aspect.), erythema (To the lateral knee and surrounding area.), full knee extension. Absent: swelling, abrasion, laceration, ecchymosis Neurological exam: Present: alert, oriented X3 Psychiatric exam: Present: normal affect, normal mood Skin exam: Present: warm, dry, intact, normal color, other (Minimal pus expressed from lateral inferior right knee.). Absent: rash Course Vital Signs 11/20/20 20:17 Temperature 98.8 F Pulse Rate 89 Respiratory 18 Rate Blood Pressure 142/72 O2 Sat by Pulse 97 Oximetry Medical Decision Making - Medical Decision Making 40-year-old male complaining of right knee pain with possible abscess that he notes is draining some white pus. Wound culture, CMP, CBC, x-ray of the right knee, 4 mg morphine ordered. Labs unremarkable. Given symptoms and imaging most likely local cellulitis. Case discussed with Dr. Morrissey, patient can discharge home with follow-up to primary care. - Lab Data Result diagrams: 11/20/20 21:14 11/20/20 21:14 Lab Results 11/20/20 11/20/20 Range/Units 21:14 21:14 WBC 7.1 (3.8-10.6) k/uL RBC 4.19 L (4.30-5.90) m/uL Hgb 13.8 (13.0-17.5) gm/dL Hct 38.3 L (39.0-53.0) % MCV 91.3 (80.0-100.0) fL MCH 32.9 (25.0-35.0) pg MCHC 36.0 (31.0-37.0) g/dL RDW 11.7 (11.5-15.5) % Plt Count 181 (150-450) k/uL MPV 7.5 Neutrophils % 68 % Lymphocytes % 19 % Monocytes % 7 % Eosinophils % 4 % Basophils % 0 % Neutrophils # 4.8 (1.3-7.7) k/uL Lymphocytes # 1.4 (1.0-4.8) k/uL Monocytes # 0.5 (0-1.0) k/uL Eosinophils # 0.3 (0-0.7) k/uL Basophils # 0.0 (0-0.2) k/uL Sodium 142 (137-145) mmol/L Potassium 4.1 (3.5-5.1) mmol/L Chloride 105 (98-107) mmol/L Carbon Dioxide 30 (22-30) mmol/L Anion Gap 7 mmol/L BUN 22 H (9-20) mg/dL Creatinine 1.11 (0.66-1.25) mg/dL Est GFR (CKD-EPI)AfAm >90 (>60 ml/min/1.73 sqM) Est GFR (CKD-EPI)NonAf 82 (>60 ml/min/1.73 sqM) Glucose 92 (74-99) mg/dL Calcium 9.3 (8.4-10.2) mg/dL Total Bilirubin 0.4 (0.2-1.3) mg/dL AST 28 (17-59) U/L ALT 21 (4-49) U/L Alkaline Phosphatase 71 (38-126) U/L Total Protein 6.7 (6.3-8.2) g/dL Albumin 4.4 (3.5-5.0) g/dL - Radiology Data Radiology results: report reviewed, image reviewed X-ray right knee: There is mild soft tissue swelling anterior to the patella. Otherwise negative exam. No fracture. Disposition Clinical Impression: Cellulitis Disposition: HOME SELF-CARE Condition: Stable Instructions (If sedation given, give patient instructions): Cellulitis (ED) Additional Instructions: Please return to the Emergency Department if symptoms worsen or any other concerns. Take antibiotics as prescribed until complete. Follow-up with primary care in the next several days. Prescriptions: Sulfamethox-Tmp 800-160Mg [Bactrim Ds] 1 each PO Q12HR #20 tab Is patient prescribed a controlled substance at d/c from ED?: No Referrals: Marilee Sage MD [Primary Care Provider] - 1-2 days Time of Disposition: 22:21
[2020-11-20 21:55] LABS: ALT 21 U/L (4-49); AST 28 U/L (17-59); African American GFR (CKD) >90 (>60 ml/min/1.73 sqM); Albumin 4.4 g/dL (3.5-5.0); Alkaline Phosphatase 71 U/L (38-126); Anion Gap 7 mmol/L; Blood Urea Nitrogen 22 mg/dL (9-20); Calcium 9.3 mg/dL (8.4-10.2); Carbon Dioxide 30 mmol/L (22-30); Chloride 105 mmol/L (98-107); Glucose 92 mg/dL (74-99); Non-African American GFR(CKD) 82 (>60 ml/min/1.73 sqM); Potassium 4.1 mmol/L (3.5-5.1); Sodium 142 mmol/L (137-145); Total Bilirubin 0.4 mg/dL (0.2-1.3); Total Protein 6.7 g/dL (6.3-8.2)
[2020-11-20 22:38] VITALS: BP 130/78; PULSE 82
== END 2020-11-20 22:38 | disposition home or self-care (01) ==
LOC: EC 19:56
DX: L03.115 Cellulitis of right lower limb (principal); F12.90 Cannabis use, unspecified, uncomplicated; Z79.52 Long term (current) use of systemic steroids; Z79.891 Long term (current) use of opiate analgesic; Z79.1 Long term (current) use of non-steroidal anti-inflammatories (NSAID); Z88.1 Allergy status to other antibiotic agents; Z87.891 Personal history of nicotine dependence; Z82.49 Family history of ischemic heart disease and other diseases of the circulatory system
CPT/HCPCS: 96374; 99283; 36415; 80053; 85025; 87070; 87205; 87077; 87186; 73562; J2270

== ENCOUNTER 2020-12-03 15:37 | Emergency (ER) | payer BC ==
[2020-12-03 15:45] VITALS: BP 138/87; PULSE 83; RESP 16; TEMP 98
[2020-12-03 17:04] LABS: Basophils % (A) 1 %; Eosinophils # (A) 0.3 k/uL (0-0.7); Eosinophils % (A) 12 %; HCT 39.5 % (39.0-53.0); HGB 13.7 gm/dL (13.0-17.5); Lymphocytes # (A) 0.9 k/uL (1.0-4.8); Lymphocytes % (A) 30 %; MCH 31.8 pg (25.0-35.0); MCHC 34.7 g/dL (31.0-37.0); MCV 91.4 fL (80.0-100.0); Mean Platelet Volume 6.8; Monocytes # (A) 0.3 k/uL (0-1.0); Monocytes % (A) 9 %; Neutrophils # (A) 1.3 k/uL (1.3-7.7); Neutrophils % (A) 45 %; Platelet Count 212 k/uL (150-450); RBC 4.32 m/uL (4.30-5.90); RDW 12.1 % (11.5-15.5); WBC 2.8 k/uL (3.8-10.6)
--- NOTE | 2020-12-03 17:11 | XR ---
Result: History: Pain. Comparison: 11/20/2020. Technique: 3 views of the right knee. Findings: No acute fracture or dislocation is seen. The visualized osseous structures are in anatomic alignmen t. The joint spaces are grossly preserved. There is no significant knee joint effusion. Mild suprap atellar enthesopathy. Impression: No acute osseous abnormality.
--- NOTE | 2020-12-03 17:16 | ED ---
General Adult HPI - General Chief complaint: Skin/Abscess/Foreign Body Stated complaint: Staff Infection on Rt Knee Time Seen by Provider: 12/03/20 16:13 Source: patient, RN notes reviewed Mode of arrival: ambulatory Limitations: no limitations - History of Present Illness Initial comments: Patient is a 40-year-old male that presents to emergency department to get a right knee area reevaluated. He was recently seen in the emergency room and given antibiotics for a cellulitis. He notes that his primary care extended his antibiotics for 5 days. He notes that the area is itchy. He denied any other issues or complaints at this time. Patient was well-appearing well-hydrated 40-year-old male in no apparent distress or pain. He denied any chest pain short of breath headache nausea vomiting diarrhea constipation fever fatigue chills weakness numbness tingling decreased range of motion or strength in his right lower extremity. - Related Data Home Medications Medication Instructions Recorded Confirmed Hydrocortisone [Cortef] 10 mg PO DAILY@1200 05/03/17 12/03/20 Hydrocortisone [Cortef] 15 mg PO DAILY 05/03/17 12/03/20 Escitalopram [Lexapro] 20 mg PO DAILY 12/03/20 12/03/20 Levothyroxine Sodium [Synthroid] 150 mcg PO DAILY 12/03/20 12/03/20 Sulfamethox-Tmp 800-160Mg [Bactrim 1 tab PO Q12HR 12/03/20 12/03/20 Ds] Testosterone Cypionate 100 mg IM TH 12/03/20 12/03/20 [Depo-Testosterone] clonazePAM [KlonoPIN] 0.5 - 1 mg PO BID PRN 12/03/20 12/03/20 Allergies Allergy/AdvReac Type Severity Reaction Status Date / Time Tetracyclines Allergy Unknown Verified 12/03/20 16:45 Review of Systems ROS Statement: Those systems with pertinent positive or pertinent negative responses have been documented in the HPI. ROS Other: All systems not noted in ROS Statement are negative. Past Medical History Past Medical History: Thyroid Disorder Additional Past Medical History / Comment(s): graves disease, sleep apnea, History of Any Multi-Drug Resistant Organisms: None Reported Past Surgical History: Orthopedic Surgery Additional Past Surgical History / Comment(s): left knee scope, ganglion cyst removal Past Anesthesia/Blood Transfusion Reactions: No Reported Reaction Past Psychological History: Anxiety, Bipolar, Depression Smoking Status: Former smoker Past Alcohol Use History: None Reported Past Drug Use History: Marijuana - Past Family History Father Family Medical History: Coronary Artery Disease (CAD), Hypertension General Exam Limitations: no limitations General appearance: alert, in no apparent distress Head exam: Present: atraumatic, normocephalic, normal inspection Eye exam: Present: normal appearance, PERRL, EOMI. Absent: scleral icterus, conjunctival injection, periorbital swelling Neck exam: Present: normal inspection Respiratory exam: Present: normal lung sounds bilaterally. Absent: respiratory distress, wheezes, rales, rhonchi, stridor Cardiovascular Exam: Present: regular rate, normal rhythm, normal heart sounds. Absent: systolic murmur, diastolic murmur, rubs, gallop, clicks Right Knee exam: Present: normal inspection, full ROM. Absent: tenderness, swelling, abrasion, laceration, ecchymosis, erythema Neurological exam: Present: alert, oriented X3 Psychiatric exam: Present: normal affect, normal mood Skin exam: Present: warm, dry, intact, normal color. Absent: rash Course Vital Signs 12/03/20 15:43 Temperature 98 F Pulse Rate 83 Respiratory 16 Rate Blood Pressure 138/87 O2 Sat by Pulse 97 Oximetry Medical Decision Making - Medical Decision Making 40-year-old male wanted to reevaluate his right knee. CBC, right knee x-ray ordered. Labs unremarkable, white count normal below. X-ray negative for any acute osseous abnormality. Case discussed with Dr. Banda, patient can discharge home with follow-up to primary care. - Lab Data Result diagrams: 12/03/20 16:45 Lab Results 12/03/20 Range/Units 16:45 WBC 2.8 L (3.8-10.6) k/uL RBC 4.32 (4.30-5.90) m/uL Hgb 13.7 (13.0-17.5) gm/dL Hct 39.5 (39.0-53.0) % MCV 91.4 (80.0-100.0) fL MCH 31.8 (25.0-35.0) pg MCHC 34.7 (31.0-37.0) g/dL RDW 12.1 (11.5-15.5) % Plt Count 212 (150-450) k/uL MPV 6.8 Neutrophils % 45 % Lymphocytes % 30 % Monocytes % 9 % Eosinophils % 12 % Basophils % 1 % Neutrophils # 1.3 (1.3-7.7) k/uL Lymphocytes # 0.9 L (1.0-4.8) k/uL Monocytes # 0.3 (0-1.0) k/uL Eosinophils # 0.3 (0-0.7) k/uL Basophils # 0.0 (0-0.2) k/uL - Radiology Data Radiology results: report reviewed, image reviewed Right knee x-ray: No acute osseous abnormality. Disposition Clinical Impression: Cellulitis Disposition: HOME SELF-CARE Condition: Stable Instructions (If sedation given, give patient instructions): Cellulitis (ED) Additional Instructions: Please return to the Emergency Department if symptoms worsen or any other concerns. Take antibiotics until complete. Follow-up with primary care as needed. Is patient prescribed a controlled substance at d/c from ED?: No Referrals: Marilee Sage MD [Primary Care Provider] - 1-2 days Time of Disposition: 17:16
== END 2020-12-03 17:35 | disposition home or self-care (01) ==
LOC: EC 15:37
DX: L03.115 Cellulitis of right lower limb (principal); F41.9 Anxiety disorder, unspecified; F31.9 Bipolar disorder, unspecified; F12.90 Cannabis use, unspecified, uncomplicated; Z79.899 Other long term (current) drug therapy; Z82.49 Family history of ischemic heart disease and other diseases of the circulatory system; Z87.891 Personal history of nicotine dependence; Z86.39 Personal history of other endocrine, nutritional and metabolic disease; Z88.1 Allergy status to other antibiotic agents
CPT/HCPCS: 36415; 85025; 99283

== ENCOUNTER → 2021-01-31 | Outpatient (CLI) | payer BC | END | disposition home or self-care (01) | LOC: LABWHC1 10:32 | PROVIDERS: ATTEND Psychiatry & Neurology Psychiatry | DX: Z79.899 Other long term (current) drug therapy (principal) | CPT/HCPCS: 36415; 80178 ==

== ENCOUNTER → 2021-02-28 | Outpatient (CLI) | payer BC | END | disposition home or self-care (01) | LOC: LABWHC1 10:21 | PROVIDERS: ATTEND Psychiatry & Neurology Psychiatry | DX: F31.13 Bipolar disorder, current episode manic without psychotic features, severe (principal) | CPT/HCPCS: 36415; 80178 ==

== ENCOUNTER → 2021-05-09 | Outpatient (CLI) | payer BC | END | disposition home or self-care (01) | LOC: LABWHC1 11:29 | PROVIDERS: ATTEND Psychiatry & Neurology Psychiatry | DX: F31.13 Bipolar disorder, current episode manic without psychotic features, severe (principal) | CPT/HCPCS: 36415; 80178 ==

== ENCOUNTER → 2021-05-25 | Outpatient (CLI) | payer BC ==
[2021-05-25 19:41] LABS: HCT 43.9 % (39.6-50.0); HGB 14.1 g/dL (13.0-17.0); MCH 30.8 pg (27.0-32.0); MCHC 32.1 g/dL (32.0-37.0); MCV 95.9 fL (80.0-97.0); Mean Platelet Volume 10.9 fL (9.5-12.2); Platelet Count 227 X 10*3/uL (140-440); RBC 4.58 X 10*6/uL (4.40-5.60); WBC 5.41 X 10*3/uL (4.50-10.00)
[2021-05-25 22:07] LABS: Prolactin 8.2 ng/mL (2.100-17.700); Prostate Specific Antigen 0.7 ng/mL (0.00-2.50); T4, Free (Free Thyroxine) 1.35 ng/dL (0.800-1.800)
== END | disposition home or self-care (01) ==
LOC: LABWHC1 13:47
PROVIDERS: ATTEND Internal Medicine Endocrinology, Diabetes & Metabolism
DX: E29.1 Testicular hypofunction (principal); D35.2 Benign neoplasm of pituitary gland
CPT/HCPCS: 36415; 82024; 82533; 84146; 84153; 84305; 84403; 84439; 84443; 85027

== ENCOUNTER → 2021-09-01 | Outpatient (CLI) | payer BC ==
--- NOTE | 2021-09-01 14:48 | P.PN ---
Subjective Progress Note Date: 09/01/21 41-year-old male patient is coming in for an annual checkup regarding his obstructive sleep apnea. He is a case of severe GHASSAN and the patient's baseline AHI was 71. Note that the patient also has chronic psychiatric problems including chronic anxiety and depression and the patient was also diagnosed hav ing bipolar disorder. He was constantly in a manic phase and he was started on lithium 200 mg twice a day. Since then, the patient has gained significant amount of weight and the patient is up and around 30 pounds. Nevertheless, continued to use his CPAP. His much better in terms of his bipolar disorder. He is not drinking for now. His back to work in his functionality is excellent this point in time. I checked his CPAP achine and the patient is currently on a CPAP pressure of 13 cm of water. His compliance over the past 30 days indicated the patient hasn't been using the CPAP machine every night without any interruption at a pressure of 13 cm of water and the patient has been averaging around 7.8 hours of CPAP use per night with a peak of 12 L per minute and his AHI is down to 2.8 while on treatment. He has no major hypercellular sleepiness during the day. He is still working for [employer] and the patient is able to go back and forth to work without having to follow sleep. His judgment and his functionality at work is perfect. He is using the airfit N20 nasal mask.no cardiac arrhythmias. No angina. No palpitations Current medication list includes lithium, Cortef 10 mg one half tabs in the morning and one temperature the evening, Synthroid 50 g 1 tablet a day, Lexapro 20 mg 1 tablet a day and lithium 200 mg 1 tablet the morning and 1 in the evening. Objective - Exam the patient's blood pressure is 126/70 with a pulse of 70 and respiration of 16 and a temperature 97.8. Oxygen saturations 96% on room air oxygen. Weight is 259. Selma score is at 13. The patient appeared well nourished and normally developed. Vital signs as documented. Head exam is unremarkable. No scleral icterus or corneal arcus noted. Neck is without jugular venous distension, thyromegaly, or carotid bruits. Carotid upstrokes are brisk bilaterally. Lungs are clear to auscultation and percussion. Cardiac exam reveals the PMI to be normally sized and situated. Rhythm is regular. First and second heart sounds normal. No murmurs, rubs or gallops. Abdominal exam reveals normal bowel sounds, no masses, no organomegaly and no aortic enlargement. Extremities are nonedematous and both femoral and pedal pulses are normal.Examination of the skin revealed no evidence of significant rashes, suspicious appearing nevi or other concerning lesions.Neurologically, the patient is awake and alert and the patient does not have any focal neurological deficit. Cranial nerves are essentially intact. Assessment and Plan Plan: 1 obstructive sleep apnea, severe with an AHI of 71. The patient continues to be successfully treated with a CPAP machine at a CPAP pressure of 13 cm of water. He is doing well. No major hypersomnia and sleepiness during the day. 2 hypersomnia recovered 3 bipolar disorder currently on lithium 4 obesity with fluctuating weight. After losing significant amount of weight, the patient has been around 30 pounds which is attributed to lithium and the patient is up to 259 pounds. MLS, symptoms of bipolar is well controlled with lithium. 5 hypothyroidism currently on Synthroid replacement 6 hypo-testosterone is in 7 chronic anxiety/depression Plan The patient is not drinking alcohol. The patient is following a very good sleep schedule. Patient is extremely compliant to CPAP machine. Encourage weight loss Keep the CPAP pressure of 13 cm of water Continue the patient on a airfit N20 fullface mask, nasal see back in 1 year's time in follow-up. His machine is functional. No need for any further adjustment at this point in time.
== END ==
LOC: SLEEP 14:07
PROVIDERS: ATTEND Internal Medicine Critical Care Medicine
DX: G47.33 Obstructive sleep apnea (adult) (pediatric) (principal); F31.9 Bipolar disorder, unspecified; E66.9 Obesity, unspecified; Z99.89 Dependence on other enabling machines and devices; E03.9 Hypothyroidism, unspecified; Z79.890 Hormone replacement therapy; F41.9 Anxiety disorder, unspecified; F32.A Depression, unspecified; E29.1 Testicular hypofunction; Z87.891 Personal history of nicotine dependence; Z88.1 Allergy status to other antibiotic agents

== ENCOUNTER → 2021-11-21 | Outpatient (CLI) | payer BC ==
[2021-11-21 11:44] LABS: HCT 42.4 % (39.6-50.0); HGB 14.2 g/dL (13.0-17.0); MCH 31.1 pg (27.0-32.0); MCHC 33.5 g/dL (32.0-37.0); Mean Platelet Volume 10.5 fL (9.5-12.2); NRBC Per 100 WBC 0 /100 WBCS (0.0-0.0); Platelet Count 256 X 10*3/uL (140-440); RBC 4.56 X 10*6/uL (4.40-5.60); RDW 12.7 % (11.5-14.5); WBC 4.48 X 10*3/uL (4.50-10.00)
[2021-11-21 11:50] LABS: Lithium 0.6 mmol/L (0.50-1.20)
[2021-11-21 11:59] LABS: African American GFR (CKD) 85.9 (60.0-200.0); Albumin 4.5 g/dL (3.8-4.9); Albumin/Globulin Ratio 2.05 (1.60-3.17); BUN/Creat Ratio 13.25 Ratio (12.00-20.00); Blood Urea Nitrogen 15.9 mg/dL (9.0-27.0); Calcium 9.3 mg/dL (8.7-10.3); Globulin 2.2 g/dL (1.6-3.3); Non-African American GFR(CKD) 74.1 (60.0-200.0); Potassium 4.6 mmol/L (3.5-5.5); Prolactin 12.8 ng/mL (2.100-17.700); Total Bilirubin 0.3 mg/dL (0.30-1.20); Total Protein 6.7 g/dL (6.2-8.2)
== END | disposition home or self-care (01) ==
LOC: LABWHC1 09:08
PROVIDERS: ATTEND Internal Medicine Endocrinology, Diabetes & Metabolism
DX: D35.2 Benign neoplasm of pituitary gland (principal); E29.1 Testicular hypofunction; Z79.899 Other long term (current) drug therapy
CPT/HCPCS: 36415; 80053; 80178; 82024; 82533; 84146; 84403; 85027

== ENCOUNTER → 2022-04-24 | Outpatient (CLI) | payer BC ==
[2022-04-24 12:46] LABS: HCT 45.2 % (39.6-50.0); HGB 15.2 g/dL (13.0-17.0); MCHC 33.6 g/dL (32.0-37.0); MCV 92.2 fL (80.0-97.0); Mean Platelet Volume 10.5 fL (9.5-12.2); NRBC Per 100 WBC 0 /100 WBCS (0.0-0.0); Platelet Count 242 X 10*3/uL (140-440); RDW 12.1 % (11.5-14.5); WBC 4.33 X 10*3/uL (4.50-10.00)
[2022-04-24 15:02] LABS: Lithium 0.7 mmol/L (0.50-1.20)
[2022-04-24 17:57] LABS: Prolactin 7.5 ng/mL (2.100-17.700); Prostate Specific Antigen 0.7 ng/mL (0.00-2.50)
== END | disposition home or self-care (01) ==
LOC: LABWHC1 08:32
PROVIDERS: ATTEND Psychiatry & Neurology Psychiatry
DX: E03.8 Other specified hypothyroidism (principal); E27.49 Other adrenocortical insufficiency; E29.1 Testicular hypofunction; D35.2 Benign neoplasm of pituitary gland; Z79.899 Other long term (current) drug therapy
CPT/HCPCS: 36415; 80178; 82024; 82533; 84146; 84153; 84403; 84443; 85027

== ENCOUNTER 2022-07-05 15:30 | Emergency (ER) | payer BC ==
[2022-07-05] MEDS ORDERED: KETOROLAC 15 MG/ML 1 ML VIAL IM STA (16:16)
[2022-07-05] MEDS ORDERED: LIDOCAINE 5% PATCH TOPICAL STA (16:16)
--- NOTE | 2022-07-05 16:54 | XR ---
EXAMINATION TYPE: XR ribs RT w pa chest xray DATE OF EXAM: 07/05/2022 COMPARISON: 05/03/2017 HISTORY: Pain TECHNIQUE: 5 view FINDINGS: Heart and mediastinum are normal. Lungs are clear of consolidation. There are no hilar mass es. Costophrenic angles are clear. No pleural effusion or pneumothorax. No evidence of rib fracture. IMPRESSION: Normal chest. No evidence of right-sided rib fracture.
[2022-07-05] MEDS ORDERED: HYDROmorphone 0.5 MG/0.5 ML SYRINGE IM STA (17:10)
[2022-07-05 17:57] VITALS: BP 122/85; PULSE 69; RESP 17; TEMP 98
[2022-07-05] MEDS ORDERED: ACET/COD 300 MG/30 MG STARTER PACK 6 TAB BTL PO STA (18:19)
--- NOTE | 2022-07-05 18:23 | ED ---
Back Pain HPI - General Chief Complaint: Back Pain/Injury Stated Complaint: Back Pain Time Seen by Provider: 07/05/22 16:06 Source: patient Limitations: no limitations - History of Present Illness Initial Comments: Patient is a 41-year-old male who presents to the emergency department with a chief complaint of back pain. Patient fell while ice-skating a few days ago landing on his back . Patient has pain in his side in the right rib area. Taking aspirin with little relief. Pain significantly worsened with breathing and walking. Denies numbness and tingling of the extremities, groin, buttock region. Denies leg weakness. Denies loss of bowel or bladder function. No chest pain or shortness of breath. - Related Data Home Medications Medication Instructions Recorded Confirmed Hydrocortisone [Cortef] 10 mg PO DAILY@1200 05/03/17 12/03/20 Hydrocortisone [Cortef] 15 mg PO DAILY 05/03/17 12/03/20 Escitalopram [Lexapro] 20 mg PO DAILY 12/03/20 12/03/20 Levothyroxine Sodium [Synthroid] 150 mcg PO DAILY 12/03/20 12/03/20 Sulfamethox-Tmp 800-160Mg [Bactrim 1 tab PO Q12HR 12/03/20 12/03/20 Ds] Testosterone Cypionate 100 mg IM TH 12/03/20 12/03/20 [Depo-Testosterone] clonazePAM [KlonoPIN] 0.5 - 1 mg PO BID PRN 12/03/20 12/03/20 Previous Rx's Medication Instructions Recorded Cyclobenzaprine [Flexeril] 10 mg PO HS PRN #10 tab 07/05/22 Ibuprofen [Motrin] 800 mg PO Q8HR PRN #30 tab 07/05/22 Lidocaine 5% Patch [Lidoderm 5% 1 patch TOPICAL DAILY PRN #5 patch 07/05/22 Patch] Allergies Allergy/AdvReac Type Severity Reaction Status Date / Time Tetracyclines Allergy Unknown Verified 12/03/20 16:45 Review of Systems ROS Statement: Those systems with pertinent positive or pertinent negative responses have been documented in the HPI. ROS Other: All systems not noted in ROS Statement are negative. Past Medical History Past Medical History: Thyroid Disorder Additional Past Medical History / Comment(s): graves disease, sleep apnea, History of Any Multi-Drug Resistant Organisms: None Reported Past Surgical History: Orthopedic Surgery Additional Past Surgical History / Comment(s): left knee scope, ganglion cyst removal Past Anesthesia/Blood Transfusion Reactions: No Reported Reaction Past Psychological History: Anxiety, Bipolar, Depression Smoking Status: Former smoker Past Alcohol Use History: None Reported Past Drug Use History: Marijuana - Past Family History Father Family Medical History: Coronary Artery Disease (CAD), Hypertension General Exam Limitations: no limitations General appearance: alert, in no apparent distress Head exam: Present: atraumatic, normocephalic, normal inspection Respiratory exam: Present: normal lung sounds bilaterally, chest wall tenderness (Point tenderness right lateral mid rib region). Absent: respiratory distress, wheezes, rales, rhonchi, stridor Cardiovascular Exam: Present: regular rate, normal rhythm, normal heart sounds. Absent: systolic murmur, diastolic murmur, rubs, gallop, clicks Back exam: Present: normal inspection, full ROM. Absent: CVA tenderness (R), CVA tenderness (L), paraspinal tenderness, vertebral tenderness Neurological exam: Present: alert, oriented X3, CN II-XII intact Psychiatric exam: Present: normal affect, normal mood Skin exam: Present: warm, dry, intact, normal color. Absent: rash Course Vital Signs 07/05/22 07/05/22 15:36 17:56 Temperature 98.6 F 98.0 F Pulse Rate 70 69 Respiratory 20 17 Rate Blood Pressure 139/84 122/85 O2 Sat by Pulse 98 96 Oximetry Medical Decision Making - Medical Decision Making Was pt. sent in by a medical professional or institution (, PA, DISCOVERY GUIDE, urgent care, hospital, or senior care...) When possible be specific @ -[No] Did you speak to anyone other than the patient for history (EMS, parent, family, police, friend...)? What history was obtained from this source @ -[No] Did you review nursing and triage notes (agree or disagree)? Why? @ -[I reviewed and agree with nursing and triage notes] Were old charts reviewed (outside hosp., previous admission, EMS record, old EKG, old radiological studies, urgent care reports/EKG's, senior care records)? Report findings @ -[No old charts were reviewed] Differential Diagnosis (chest pain, altered mental status, abdominal pain women, abdominal pain men, vaginal bleeding, weakness, fever, dyspnea, syncope, headache, dizziness, GI bleed, back pain, seizure, CVA, palpatations, mental health)? @ -Rib fracture, contusion, soft tissue injury EKG interpreted by me (3pts min.). @ -[As above] X-rays interpreted by me (1pt min.). @ -Yes, chest x-ray shows a normal chest without rib fracture CT interpreted by me (1pt min.). @ -[None done] U/S interpreted by me (1pt. min.). @ -[None done] What testing was considered but not performed or refused? (CT, X-rays, U/S, labs)? Why? @ -[None] What meds were considered but not given or refused? Why? @ -[None] Did you discuss the management of the patient with other professionals (professionals i.e. , PA, DISCOVERY GUIDE, lab, RT, psych nurse, social services manager, gluer machine setup operator, teacher, mortgage loan officer, supervisor case loading)? Give summary @ -[No] Was smoking cessation discussed for >3mins.? @ -[No] Was critical care preformed (if so, how long)? @ -[No] Were there social determinants of health that impacted care today? How? (Homelessness, low income, unemployed, alcoholism, drug addiction, transportation, low edu. Level, literacy, decrease access to med. care, [facility], rehab)? @ -[No] Was there de-escalation of care discussed even if they declined (Discuss DNR or withdrawal of care, Hospice)? DNR status @ -[No] What co-morbidities impacted this encounter? (DM, HTN, Smoking, COPD, CAD, Cancer, CVA, ARF, Chemo, Hep., AIDS, mental health diagnosis, sleep apnea, morbid obesity)? @ -[None] Was patient admitted / discharged? Hospital course, mention meds given and route, prescriptions, significant lab abnormalities, going to OR and other pertinent info. @Discharge. No evidence of fracture. Patient will be discharged with pain control and spirometer. Undiagnosed new problem with uncertain prognosis? @ -[No] Drug Therapy requiring intensive monitoring for toxicity (Heparin, Nitro, Insulin, Cardizem)? @ -[No] Were any procedures done? @ -[No] Diagnosis/symptom? @ -Right Rib pain Acute, or Chronic, or Acute on Chronic? @ -Acute Uncomplicated (without systemic symptoms) or Complicated (systemic symptoms)? @ -Uncomplicated Side effects of treatment? @ -[No] Exacerbation, Progression, or Severe Exacerbation? @ -[No] Poses a threat to life or bodily function? How? (Chest pain, USA, ID, pneumonia, PE, COPD, DKA, ARF, appy, cholecystitis, CVA, Diverticulitis, Homicidal, Suicidal, threat to staff... and all critical care pts) @ -[No] Dr. Sierra is my attending. Disposition Clinical Impression: Rib pain on right side Disposition: HOME SELF-CARE Condition: Good Instructions (If sedation given, give patient instructions): Acute Low Back Pain (ED) Additional Instructions: Take medication as directed. Continue to use spirometer at home.Return t the emergency department if you experience new, concerning, or worsening symptoms. Prescriptions: Cyclobenzaprine [Flexeril] 10 mg PO HS PRN #10 tab PRN Reason: Muscle Spasm Lidocaine 5% Patch [Lidoderm 5% Patch] 1 patch TOPICAL DAILY PRN #5 patch PRN Reason: Pain Ibuprofen [Motrin] 800 mg PO Q8HR PRN #30 tab PRN Reason: Pain Is patient prescribed a controlled substance at d/c from ED?: No Referrals: Marilee Sage MD [Primary Care Provider] - 1-2 days
== END 2022-07-05 18:27 | disposition home or self-care (01) ==
LOC: EC 15:30
DX: R07.81 Pleurodynia (principal); E07.9 Disorder of thyroid, unspecified; F41.9 Anxiety disorder, unspecified; F31.9 Bipolar disorder, unspecified; F12.90 Cannabis use, unspecified, uncomplicated; Z79.890 Hormone replacement therapy; Z87.891 Personal history of nicotine dependence
CPT/HCPCS: 71101; 99284; 96372 ×2; J1885; J1170

== ENCOUNTER → 2022-11-13 | Outpatient (CLI) | payer BC ==
[2022-11-14 08:21] LABS: HCT 43.4 % (39.6-50.0); HGB 14.5 d/dL (12.0-15.0); MCH 31.9 pg (27.0-32.0); MCHC 33.4 d/dL (32.0-37.0); MCV 95.4 FL (80.0-97.0); Mean Platelet Volume 10.9 FL (9.5-12.2); NRBC Per 100 WBC 0 X 10*3/uL (0.00-0.01); Platelet Count 217 X 10*3/uL (140-440); RBC 4.55 X 10*6/uL (4.40-5.60); RDW 12.4 % (11.5-14.5); WBC 4.66 X 10*3/uL (4.50-10.00)
[2022-11-14 08:54] LABS: Lithium 0.7 mmol/L (0.50-1.20)
[2022-11-14 09:52] LABS: Prolactin 8.7 ng/mL (2.100-17.000)
== END | disposition home or self-care (01) ==
LOC: LABWHC1 09:56
PROVIDERS: ATTEND Psychiatry & Neurology Psychiatry
DX: Z51.81 Encounter for therapeutic drug level monitoring (principal); Z79.899 Other long term (current) drug therapy; D35.2 Benign neoplasm of pituitary gland; E29.1 Testicular hypofunction; R73.03 Prediabetes
CPT/HCPCS: 36415; 80178; 82533; 83036; 84146; 84153; 84403; 85027

== ENCOUNTER → 2023-05-16 | Outpatient (CLI) | payer BC ==
[2023-05-16 18:52] LABS: HCT 43.3 % (39.6-50.0); MCH 31.7 pg (27.0-32.0); MCHC 34.6 g/dL (32.0-37.0); MCV 91.5 FL (80.0-97.0); Mean Platelet Volume 10.7 FL (9.5-12.2); NRBC Per 100 WBC 0 X 10*3/uL (0.00-0.01); Platelet Count 254 X 10*3/uL (140-440); RBC 4.73 X 10*6/uL (4.40-5.60); RDW 12.1 % (11.5-14.5); WBC 5.08 X 10*3/uL (4.50-10.00)
[2023-05-16 19:07] LABS: Prostate Specific Antigen 0.68 ng/mL (0.000-2.500)
== END | disposition home or self-care (01) ==
LOC: LABWHC1 12:34
PROVIDERS: ATTEND Internal Medicine Endocrinology, Diabetes & Metabolism
DX: D35.2 Benign neoplasm of pituitary gland (principal); E29.1 Testicular hypofunction; E03.8 Other specified hypothyroidism
CPT/HCPCS: 36415; 82024; 82533; 84153; 84403; 84443; 85027

== ENCOUNTER 2023-11-16 10:45 | Emergency (ER) | payer BC ==
[2023-11-16 11:16] VITALS: RESP 18
--- NOTE | 2023-11-16 11:52 | ED ---
Extremity Problem HPI - General Chief complaint: Extremity Problem,Nontraumatic Stated complaint: knee pain Time Seen by Provider: 11/16/23 11:51 Source: patient, RN notes reviewed Mode of arrival: ambulatory Limitations: no limitations - History of Present Illness Initial comments: 43-year-old male presented to the ER with a chief complaint of left knee pain. Patient states over the weekend he went to [place] with his son and since then has been experiencing left medial knee pain. He states he was doing a lot of walking which may have exacerbated his symptoms. He describes it as a shooting 9 out of 10 pain with walking and an achy/burning pain at rest. He locates his pain at the medial joint line of left knee. Denies any paresthesias. He denies any known injuries or traumas. No other complaints at this time. - Related Data Home Medications Medication Instructions Recorded Confirmed Hydrocortisone [Cortef] 10 mg PO DAILY@1200 05/03/17 12/03/20 Hydrocortisone [Cortef] 15 mg PO DAILY 05/03/17 12/03/20 Escitalopram [Lexapro] 20 mg PO DAILY 12/03/20 12/03/20 Levothyroxine Sodium [Synthroid] 150 mcg PO DAILY 12/03/20 12/03/20 Sulfamethox-Tmp 800-160Mg [Bactrim 1 tab PO Q12HR 12/03/20 12/03/20 Ds] Testosterone Cypionate 100 mg IM TH 12/03/20 12/03/20 [Depo-Testosterone] clonazePAM [KlonoPIN] 0.5 - 1 mg PO BID PRN 12/03/20 12/03/20 Previous Rx's Medication Instructions Recorded Cyclobenzaprine [Flexeril] 10 mg PO HS PRN #10 tab 07/05/22 Ibuprofen [Motrin] 800 mg PO Q8HR PRN #30 tab 07/05/22 Lidocaine 5% Patch [Lidoderm 5% 1 patch TOPICAL DAILY PRN #5 patch 07/05/22 Patch] Ibuprofen [Motrin] 600 mg PO Q8HR PRN #30 tab 11/16/23 Allergies Allergy/AdvReac Type Severity Reaction Status Date / Time Tetracyclines Allergy Unknown Verified 11/16/23 11:16 Review of Systems ROS Statement: Those systems with pertinent positive or pertinent negative responses have been documented in the HPI. ROS Other: All systems not noted in ROS Statement are negative. Past Medical History Past Medical History: Thyroid Disorder Additional Past Medical History / Comment(s): graves disease, sleep apnea, History of Any Multi-Drug Resistant Organisms: None Reported Past Surgical History: Orthopedic Surgery Additional Past Surgical History / Comment(s): left knee scope, ganglion cyst removal Past Anesthesia/Blood Transfusion Reactions: No Reported Reaction Past Psychological History: Anxiety, Bipolar, Depression Smoking Status: Former smoker Past Alcohol Use History: None Reported Past Drug Use History: Marijuana - Past Family History Father Family Medical History: Coronary Artery Disease (CAD), Hypertension General Exam - General Exam Comments Initial Comments: Visual Physical Exam Vital signs reviewed General: Well-appearing, nontoxic, no acute distress. Head: Normocephalic, atraumatic Eyes: PERRLA, EOMI ENT: Airway patent Chest: Nonlabored breathing Skin: No visual rash, normal skin tone Neuro: Alert and oriented 3 Musculoskeletal: No gross abnormalities Limitations: no limitations General appearance: alert, in no apparent distress Respiratory exam: Present: normal lung sounds bilaterally. Absent: respiratory distress, wheezes, rales, rhonchi, stridor Cardiovascular Exam: Present: regular rate, normal rhythm, normal heart sounds. Absent: systolic murmur, diastolic murmur, rubs, gallop, clicks Extremities exam: Present: normal inspection, full ROM, normal capillary refill, other (pain with exteral tibial rotation McMurrays test. 2+ left DP and PT pulse. sensation intact. no erythema, effusion or contusions present). Absent: tenderness, pedal edema, joint swelling, calf tenderness Skin exam: Present: warm, dry, intact, normal color. Absent: rash Course Vital Signs 11/16/23 11/16/23 11:13 13:22 Temperature 98 F 98.1 F Pulse Rate 70 72 Respiratory 18 18 Rate Blood Pressure 123/79 121/68 O2 Sat by Pulse 98 99 Oximetry Medical Decision Making - Medical Decision Making I performed the quick note portion of this chart. Electronically signed by Pratik Hopper PA-C Was pt. sent in by a medical professional or institution ([facility], [facility], urgent care, hospital, or usp...) When possible be specific @ -No Did you speak to anyone other than the patient for history (EMS, parent, family, police, friend...)? What history was obtained from this source @ -No Did you review nursing and triage notes (agree or disagree)? Why? @ -I reviewed and agree with nursing and triage notes Were old charts reviewed (outside hosp., previous admission, EMS record, old EKG, old radiological studies, urgent care reports/EKG's, usp records)? Report findings @ -No old charts were reviewed Differential Diagnosis (chest pain, altered mental status, abdominal pain women, abdominal pain men, vaginal bleeding, weakness, fever, dyspnea, syncope, headache, dizziness, GI bleed, back pain, seizure, CVA, palpatations, mental health, musculoskeletal)? @ -Differential Musculoskeletal: Muscular strain, contusion, ligament sprain, fracture, arthritis, septic arthritis, bursitis, cellulitis, muscle spasm, nerve compression, DVT, arterial occlusion, herpes zoster, electrolyte abnormality, tumor.... This is not meant to be in all inclusive list EKG interpreted by me (3pts min.). @ -None X-rays interpreted by me (1pt min.). @ -Left knee x-ray interpreted by me negative for acute fractures or dislocations. CT interpreted by me (1pt min.). @ -None done U/S interpreted by me (1pt. min.). @ -None done What testing was considered but not performed or refused? (CT, X-rays, U/S, labs)? Why? @ -None What meds were considered but not given or refused? Why? @ -None Did you discuss the management of the patient with other professionals (professionals i.e. , PA, [facility], lab, RT, psych nurse, older adult social work specialist, group leader wafer polishing, teacher, principal gifts officer, case mgr)? Give summary @ -No Was smoking cessation discussed for >3mins.? @ -No Was critical care preformed (if so, how long)? @ -No Were there social determinants of health that impacted care today? How? (Homelessness, low income, unemployed, alcoholism, drug addiction, transportation, low edu. Level, literacy, decrease access to med. care, long-term, rehab)? @ -No Was there de-escalation of care discussed even if they declined (Discuss DNR or withdrawal of care, Hospice)? DNR status @ -No What co-morbidities impacted this encounter? (DM, HTN, Smoking, COPD, CAD, Cancer, CVA, ARF, Chemo, Hep., AIDS, mental health diagnosis, sleep apnea, morbid obesity)? @ -None Was patient admitted / discharged? Hospital course, mention meds given and route, prescriptions, significant lab abnormalities, going to OR and other pertinent info. @ -Discharge. 43-year-old male presented to the ER with chief complaint of left knee pain. History and physical exam completed. Vitals stable. Patient in no signs of acute distress and nontoxic-appearing. Left lower extremity neurovascular intact. Pain with external rotation Sadia test. No erythema, effusions or contusions present. X-rays obtained to rule out fracture or dislocation. Patient received IM Toradol for symptom control in the ER. Left knee x-ray interpreted by me negative for acute osseous process. Upon reevaluation, patient resting comfortably in exam room in no signs of acute distress. Patient reporting mildly improved pain. Results discussed with patient, all questions answered. Patient stable for discharge and outpatient follow-up. Advised close follow-up with orthopedics, referral given. Ibuprofen prescribed. Return parameters discussed. Patient discharged in stable condition. Patient verbally expressed understanding and agreement with care plan. Case discussed with ED attending, Dr. Barillas. Undiagnosed new problem with uncertain prognosis? @ -No Drug Therapy requiring intensive monitoring for toxicity (Heparin, Nitro, Insulin, Cardizem)? @ -No Were any procedures done? @ -No Diagnosis/symptom? @ -Knee pain Acute, or Chronic, or Acute on Chronic? @ -Acute Uncomplicated (without systemic symptoms) or Complicated (systemic symptoms)? @ -Uncomplicated Side effects of treatment? @ -No Exacerbation, Progression, or Severe Exacerbation? @ -No Poses a threat to life or bodily function? How? (Chest pain, [place], [place], pneumonia, PE, COPD, DKA, ARF, appy, cholecystitis, CVA, Diverticulitis, Homicidal, Suicidal, threat to staff... and all critical care pts) @ -No - Radiology Data Radiology results: report reviewed, image reviewed Disposition Clinical Impression: Knee pain Disposition: HOME SELF-CARE Condition: Stable Instructions (If sedation given, give patient instructions): Knee Pain (ED) Additional Instructions: Follow-up with orthopedics. Return to the ER for any new or worsening symptoms. Prescriptions: Ibuprofen [Motrin] 600 mg PO Q8HR PRN #30 tab PRN Reason: Pain Is patient prescribed a controlled substance at d/c from ED?: No Referrals: None,Stated [Primary Care Provider] - 1-2 days Mulugeta Sin MD [Medical Doctor] - 1-2 days Time of Disposition: 13:15
--- NOTE | 2023-11-16 12:53 | XR ---
EXAMINATION TYPE: XR knee complete LT DATE OF EXAM: 11/16/2023 COMPARISON: NONE HISTORY: Pain TECHNIQUE: Three views are submitted. FINDINGS: Joint spaces are preserved. Osseous structures are intact. No acute fracture seen. Sclerotic densi ty overlying the proximal tibia likely related to bone. These ossified at the upper margin. There is marginal spurring of the patella. IMPRESSION: 1. No acute fracture or dislocation.
[2023-11-16] MEDS: KETOROLAC 15 MG/ML 1 ML VIAL IM STA (13:17)
[2023-11-16 13:24] VITALS: BP 121/68; PULSE 72; TEMP 98.1
== END 2023-11-16 13:22 | disposition home or self-care (01) ==
LOC: EC 10:45
DX: M25.562 Pain in left knee (principal); Z87.891 Personal history of nicotine dependence; Z88.8 Allergy status to other drugs, medicaments and biological substances
CPT/HCPCS: 73562; 99283; 96372; J1885

== ENCOUNTER → 2024-05-12 | Outpatient (CLI) | payer BC ==
[2024-05-12 13:32] LABS: HCT 44.4 % (39.6-50.0); HGB 14.9 g/dL (13.0-17.0); MCHC 33.6 g/dL (32.0-37.0); MCV 92.5 FL (80.0-97.0); Mean Platelet Volume 10.2 FL (9.5-12.2); NRBC Per 100 WBC 0 X 10*3/uL (0.00-0.01); Platelet Count 228 X 10*3/uL (140-440); RDW 12.4 % (11.5-14.5); WBC 4.67 X 10*3/uL (4.50-10.00)
[2024-05-12 13:51] LABS: Prostate Specific Antigen 0.61 ng/mL (0.000-2.500); T4, Free (Free Thyroxine) 1.21 ng/dL (0.80-1.80)
[2024-05-12 15:29] LABS: Prolactin 7.9 ng/mL (2.100-17.000)
== END | disposition home or self-care (01) ==
LOC: LABWHC1 08:58
PROVIDERS: ATTEND Internal Medicine Endocrinology, Diabetes & Metabolism
DX: E29.1 Testicular hypofunction (principal); D35.2 Benign neoplasm of pituitary gland; E03.8 Other specified hypothyroidism
CPT/HCPCS: 36415; 82024; 82533; 84146; 84153; 84305; 84403; 84439; 84443; 85027